=== PATIENT | female | born 2000 | race Caucasian/White ===

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

== ENCOUNTER 2022-03-20 01:28 | Emergency (ER) | payer MEDICAID ==
[~2022-03-20] VITALS: Ht 160 cm; Wt 76.0 kg
[~2022-03-20 01:28] MED LIST: CEPH500C2 MT; IBUP-2029 MT
[2022-03-20] MEDS ORDERED: TOPUD PO (02:41)
[2022-03-20] MEDS ORDERED: FLUT9.9S BOTHNSTRLS (02:42)
[2022-03-20 03:17] VITALS: BP 107/78
== END 2022-03-20 03:17 | disposition home or self-care (01) ==
LOC: ER 01:28
DX: J02.9 Acute pharyngitis, unspecified (principal); F41.9 Anxiety disorder, unspecified; E78.00 Pure hypercholesterolemia, unspecified
CPT/HCPCS: 81025; 99282; 99283

== ENCOUNTER 2023-03-02 19:55 | Emergency (ER) | payer MEDICAID ==
[~2023-03-02] VITALS: Ht 157.5 cm; Wt 76.0 kg
[~2023-03-02 19:55] MED LIST changes: +FLUT9.9S BOTHNSTRLS; +TOPUD PO
[2023-03-02 20:04] VITALS: BP 127/81
[2023-03-02 20:31] LABS: BASOPHILS % 0.2 % (0.0-2.0); EOSINOPHILS % 0.2 % (0.0-5.0); HEMATOCRIT. 38.9 % (36.0-48.0); HEMOGLOBIN. 13.1 g/dL (12.0-16.0); LYMPHOCYTES % 12.6 % (20.0-50.0); MEAN CORPUSCULAR HEMOGLOBIN 28.3 pg (28.0-32.0); MEAN CORPUSCULAR VOLUME 84.1 fL (81.0-99.0); MEAN PLATELET VOLUME 8.6 fl (7.4-10.4); MONOCYTES % 9.2 % (2.0-8.0); NEUTROPHILS % 77.8 % (40.0-76.0); PLATELET 309 x1000/uL (130-400); RED BLOOD CELL COUNT 4.62 mill/uL (4.2-5.4); RED CELL DISTRIBUTION WIDTH 14.2 % (11.6-14.6)
[2023-03-02 20:41] LABS: CHLORIDE 102 mEq/L (98-107)
[2023-03-02 22:04] LABS: CLARITY URINE CLEAR (CLEAR); COLOR URINE YELLOW (YELLOW); KETONES URINE NEGATIVE (NEGATIVE); LEUKOCYTE ESTERASE URINE 1+ (NEGATIVE); NITRITE URINE NEGATIVE (NEGATIVE); OCCULT BLOOD URINE NEGATIVE (NEGATIVE); PROTEIN URINE NEGATIVE (NEGATIVE); SPECIFIC GRAVITY URINE 1.017 (1.005-1.030)
[2023-03-02] MEDS ORDERED: ACETAMINOPHEN 325MG TABLET PO ONE (22:15)
[2023-03-02] MEDS ORDERED: ONDANSETRON 4MG ODT PO ONE (22:45)
== END 2023-03-03 01:30 | disposition home or self-care (01) ==
LOC: ER 19:55
DX: N30.90 Cystitis, unspecified without hematuria (principal); R50.9 Fever, unspecified; E78.00 Pure hypercholesterolemia, unspecified
CPT/HCPCS: 36415; 71045; 80053; 81003; 81025; 84484; 85025; 93005; 99285

== ENCOUNTER 2024-11-19 08:03 | Emergency (ER) | payer MEDICAID ==
[~2024-11-19] VITALS: Ht 157.5 cm; Wt 82.0 kg
[2024-11-19 08:09] VITALS: O2SAT 19
[2024-11-19 08:12] VITALS: BP 117/67; PULSE 97; RESP 14; TEMP 36.7; O2SAT 98
== END 2024-11-19 09:27 | disposition home or self-care (01) ==
LOC: ER 08:03
DX: B34.9 Viral infection, unspecified (principal)
CPT/HCPCS: 99281